=== PATIENT | male | born 1990 | race Native Hawaiian/Other Pacific Islander ===

== ENCOUNTER 2017-04-06 14:09 | Emergency (ER) | payer OTHER ==
[2017-04-06 14:15] VITALS: BP 118/76; PULSE 63; RESP 18; TEMP 97.8; O2SAT 99
[2017-04-06] MEDS ORDERED: Lidocaine 2% Inj (20ml) INFIL ONE (14:25)
[2017-04-06] MEDS ORDERED: Lidocaine 2% Inj (20ml) ONE (14:27)
[2017-04-06] MEDS ORDERED: Bacitracin 500 Units/gm Oint Foilpak UD ONE (14:48)
--- NOTE | 2017-04-06 14:49 | C.PDOC ---
History Of Present Illness 26 year old male presents to the ED for evaluation of a laceration which he sustained to his right hand while cleaning the yard with a knife earlier today. Patient denies deformities, weakness, sensorivascular deficits or active bleeding at this time. Time Seen by Provider: 04/06/17 14:19 Chief Complaint (Nursing): Abnormal Skin Integrity History Per: Patient History/Exam Limitations: no limitations Onset/Duration Of Symptoms: Hrs Current Symptoms Are (Timing): Still Present Location Of Injury: Right: Hand Quality Of Symptoms: Painful Additional History Per: Patient Past Medical History Reviewed: Historical Data, Nursing Documentation, Vital Signs Vital Signs: Last Vital Signs Temp 97.8 F 04/06/17 14:13 Pulse 63 04/06/17 14:13 Resp 18 04/06/17 14:13 BP 118/76 04/06/17 14:13 Pulse Ox 99 04/06/17 14:52 - Medical History PMH: No Chronic Diseases Surgical History: No Surg Hx Family History: States: Unknown Family Hx - Social History Hx Tobacco Use: No Hx Alcohol Use: Yes Hx Substance Use: No - Immunization History Hx Tetanus Toxoid Vaccination: Yes Hx Influenza Vaccination: Yes Hx Pneumococcal Vaccination: Yes Review Of Systems Skin: Positive for: Other (laceration to right hand) Neurological: Negative for: Weakness, Numbness Physical Exam - Physical Exam Appears: Well, Non-toxic, No Acute Distress Skin: Normal Color, Warm, Other ((+)3cm linear superficial laceration to ulnar aspect Right palm, no edmea, no erythema, no wound draining, no wound FB.) Extremity: Normal ROM (Right hand), Capillary Refill (less than 2sec to Right hand), No Deformity, No Swelling Neurological/Psych: Oriented x3, Normal Speech, Normal Motor, Normal Sensation, Normal Reflexes ED Course And Treatment O2 Sat by Pulse Oximetry: 99 (on RA) Pulse Ox Interpretation: Normal Progress Note: On re-eval, pt is afebrile, hemodynamicaly stable. Non-toxic. AMbulatory rin ED with stable agit. Right hand: laceration closed with sutures w/o complication. FAROM, no neurovascular deficits. Pt advised on wound care. ref. to f/u with PMD in 2 days for wound check. return to ED if any sign of infection. Laceration - Laceration Repair Right hand Wound Length (In cm): 3 Description Of Wound: Linear Anesthesia: Lidocaine 2% Wound Examination: Irrigated With Saline, No FB With Wound Exploration, No Tendon Injury With Wound Exploration Wound Closure: Suture (#6) Suture Technique And Material Used: Nylon (4-0) Disposition Counseled Patient/Family Regarding: Diagnosis, Need For Followup - Disposition Referrals: [facility] [Outside] Disposition: HOME/ ROUTINE Disposition Time: 14:47 Condition: STABLE Additional Instructions: KEEP WOUND DRY FOR 2 DAYS, AVOID WATER EXPOSURE CLEAN WITH PEROXIDE DAILY, APPLY ANTIBACTERIAL CREAM DAILY SUTURE REMOVAL N 7-10 DAYS RETURN TO ED AT ANY TIME IF ANY SIGN OF INFECTION. 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 - Scribe Statement The provider has reviewed the documentation as recorded by the Scribe (Jen Ware) All medical record entries made by the Scribe were at my direction and personally dictated by me. I have reviewed the chart and agree that the record accurately reflects my personal performance of the history, physical exam, medical decision making, and the department course for this patient. I have also personally directed, reviewed, and agree with the discharge instructions and disposition.
== END 2017-04-06 14:55 | disposition home or self-care (01) ==
LOC: C.ER 14:09
DX: S61.411A Laceration without foreign body of right hand, initial encounter (principal); W26.0XXA Contact with knife, initial encounter; Y93.H2 Activity, gardening and landscaping; Y92.096 Garden or yard of other non-institutional residence as the place of occurrence of the external cause